=== PATIENT | female | born 1975 | race Caucasian/White ===

== ENCOUNTER → 2017-01-17 | Outpatient (CLI) | payer MEDICAID ==
--- NOTE | 2017-01-17 16:22 | RADIOLOGY REPORT (SQ) ---
EXAM DESCRIPTION: NOSE/NASAL BONES COMPLETED DATE/TIME: 01/17/2017 4:13 pm REASON FOR STUDY: HEADACHE R51 HEADACHE COMPARISON: None. NUMBER OF VIEWS: Three view. TECHNIQUE: Images of the nasal acquired. LIMITATIONS: None. FINDINGS: ORBITS: No fracture. No foreign body. SINUSES: No mucosal thickening. No air fluid levels. NASAL BONES: No fracture. OTHER: No other significant finding. IMPRESSION: NO FOREIGN BODY OR FRACTURE OF THE NASAL BONES. TECHNICAL DOCUMENTATION: JOB ID: [id number] [employer]- All Rights Reserved
== END ==
LOC: OD 15:51
PROVIDERS: ATTEND Physician Assistant
DX: R51 Headache (principal)
CPT/HCPCS: 70160

== ENCOUNTER 2017-09-05 23:43 | Emergency (ER) | payer SELFPAY ==
[2017-09-06] MEDS ORDERED: MORPHINE SULFATE 10 MG/ML INJ IV ONE (00:26)
[2017-09-06] MEDS ORDERED: NORMAL SALINE 1000 ML 1,000 ML IV ONE ×2 (00:26→02:53)
[2017-09-06] MEDS ORDERED: ONDANSETRON HCL INJ/PF 4 MG/2 ML SDV IV ONE (00:26)
--- NOTE | 2017-09-06 00:29 | ER Document Report ---
ED Medical Screen (RME) - General Chief Complaint: Abdominal Pain Stated Complaint: STOMACH PAIN Time Seen by Provider: 09/06/17 00:26 Mode of Arrival: Wheelchair Information source: Patient Notes: 42-year-old female presents to ED for complaint of right lower quadrant abdominal pain with rebound tenderness. Patient states she has been nauseated since about 6 PM. She states at 8:00 she ate and then the nausea became worse and she vomited once. She states she has had one diarrheal stool. She states all the pain is in the right lower quadrant. She does have rebound tenderness. She also has severe pain to the right lower quadrant if her heel is tapped. She states she has had a hysterectomy. I have greeted and performed a rapid initial assessment of this patient. A comprehensive ED assessment and evaluation of the patient, analysis of test results and completion of medical decision making process will be conducted by an additional ED providers. TRAVEL OUTSIDE OF THE [place] IN LAST 30 DAYS: No - Related Data Allergies/Adverse Reactions: No Known Allergies Allergy (Verified 09/05/17 23:50) Past Medical History - Past Medical History Cardiac Medical History: Reports: Hx Coronary Artery Disease Past Surgical History: Reports: Hx Cardiac Catheterization, Hx Gynecologic Surgery - implants in fallopian tubes, Hx Hysterectomy - Immunizations Immunizations up to date: Yes Hx Diphtheria, Pertussis, Tetanus Vaccination: Yes Physical Exam - Vital signs Vitals: Temp Pulse Resp BP Pulse Ox 97.6 F 78 22 H 148/133 H 97 09/05/17 23:52 09/05/17 23:52 09/05/17 23:52 09/05/17 23:52 09/05/17 23:52 Course - Vital Signs Vital signs: Temp Pulse Resp BP Pulse Ox 97.6 F 78 22 H 148/133 H 97 09/05/17 23:52 09/05/17 23:52 09/05/17 23:52 09/05/17 23:52 09/05/17 23:52 Doctor's Discharge - Discharge Referrals: DEWAYNE DRUMMOND PA-C [Primary Care Provider] - Follow up as needed
--- NOTE | 2017-09-06 00:51 | ER Document Report ---
ED General - General Chief Complaint: Abdominal Pain Stated Complaint: STOMACH PAIN Time Seen by Provider: 09/06/17 00:26 Mode of Arrival: Wheelchair Information source: Patient Notes: 42-year-old female with coronary artery disease presents with complaint of right lower quadrant pain that started 6 hours prior to arrival. Patient describes the pain as sudden in onset, sharp, throbbing and constant. Patient has had associated nausea and one episode of vomiting. She states she also had one episode of diarrhea. Patient denies sick contacts. She does have a history of a hysterectomy. She does also have a history of ovarian cysts but states this feels different. Patient denies vaginal discharge, concern for STD. She is sexually active with one partner. TRAVEL OUTSIDE OF THE [place] IN LAST 30 DAYS: No - HPI Onset: Just prior to arrival Onset/Duration: Sudden, Persistent, Worse Quality of pain: Stabbing, Throbbing Severity: Moderate Pain Level: 2 Associated symptoms: Diarrhea, Nausea, Vomiting Exacerbated by: Movement Relieved by: Denies Similar symptoms previously: No Recently seen / treated by doctor: No - Related Data Allergies/Adverse Reactions: No Known Allergies Allergy (Verified 09/05/17 23:50) Past Medical History - General Information source: Patient - Social History Smoking Status: Current Every Day Smoker Cigarette use (# per day): Yes - 10 Smoking Education Provided: Yes Frequency of alcohol use: Occasional Drug Abuse: None Lives with: Family Family History: Arthritis, CAD, CVA, DM, Hyperlipidemia, Hypertension, Malignancy - Past Medical History Cardiac Medical History: Reports: Hx Coronary Artery Disease Past Surgical History: Reports: Hx Cardiac Catheterization, Hx Gynecologic Surgery - implants in fallopian tubes, Hx Hysterectomy - Immunizations Immunizations up to date: Yes Hx Diphtheria, Pertussis, Tetanus Vaccination: Yes Review of Systems - Review of Systems Notes: REVIEW OF SYSTEMS: CONSTITUTIONAL : Denies fever, chills, or sweats. Denies recent illness. Denies weight loss, recent hospitalizations. EENT: Denies visual changes, eye pain. Denies nasal or sinus congestion or discharge. Denies sore throat, oral lesions, difficulty swallowing. CARDIOVASCULAR: Denies chest pain. Denies palpitations. Denies lower extremity edema. RESPIRATORY: Denies cough, cold, or chest congestion. Denies shortness of breath, wheezing. GASTROINTESTINAL: Denies abdominal distention. Denies blood in vomitus, stools, or per rectum. Denies black, tarry stools. Denies constipation. GENITOURINARY: Denies difficulty urinating, painful urination, frequency, blood in urine, or vaginal discharge. MUSCULOSKELETAL: Denies back or neck pain or stiffness. Denies joint pain or swelling. SKIN: Denies rash, lesions or sores. HEMATOLOGIC : Denies easy bruising or bleeding. LYMPHATIC: Denies swollen glands. NEUROLOGICAL: Denies confusion or altered mental status. Denies passing out or loss of consciousness. Denies dizziness or lightheadedness. Denies headache. Denies weakness or paralysis. Denies problems difficulty with ambulation, slurred speech. Denies sensory loss, numbness, or tingling. Denies seizures. PSYCHIATRIC: Denies anxiety or stress. Denies depression, suicidal ideation, or homicidal ideation. Denies visual or auditory hallucinations. Physical Exam - Vital signs Vitals: Temp Pulse Resp BP Pulse Ox 97.6 F 78 22 H 148/133 H 97 09/05/17 23:52 09/05/17 23:52 09/05/17 23:52 09/05/17 23:52 09/05/17 23:52 Interpretation: Hypertensive. No: Febrile - Notes Notes: PHYSICAL EXAMINATION: GENERAL: Well-appearing, well-nourished and in no acute distress. HEAD: Atraumatic, normocephalic. EYES: Pupils equal round and reactive to light, extraocular movements intact, conjunctiva are normal. ENT: Nares patent, oropharynx clear without exudates. Moist mucous membranes. NECK: Normal range of motion, supple without lymphadenopathy LUNGS: Breath sounds clear to auscultation bilaterally and equal. No wheezes rales or rhonchi. HEART: Regular rate and rhythm without murmurs ABDOMEN: Tender to palpation in the right lower quadrant with associated guarding and rebound. Female : deferred Musculoskeletal: Normal range of motion, no pitting or edema. No cyanosis. NEUROLOGICAL: Cranial nerves grossly intact. Normal speech, normal gait. Normal sensory, motor exams PSYCH: Normal mood, normal affect. SKIN: Warm, Dry, normal turgor, no rashes or lesions noted. Course - Re-evaluation Re-evalutation: Laboratory 09/06/17 09/06/17 09/06/17 00:42 00:42 00:42 WBC 9.0 RBC 4.49 Hgb 13.7 Hct 40.5 MCV 90 MCH 30.6 MCHC 33.9 RDW 14.1 H Plt Count 200 Seg Neutrophils % 68.7 Lymphocytes % 22.6 Monocytes % 7.5 Eosinophils % 0.9 Basophils % 0.3 Absolute Neutrophils 6.2 Absolute Lymphocytes 2.0 Absolute Monocytes 0.7 Absolute Eosinophils 0.1 Absolute Basophils 0.0 Sodium 145.3 H Potassium 4.4 Chloride 111 H Carbon Dioxide 23 Anion Gap 11 BUN 11 Creatinine 0.67 Est GFR ( Amer) > 60 Est GFR (Non-Af Amer) > 60 Glucose 90 Calcium 9.6 Total Bilirubin 0.4 Direct Bilirubin 0.3 Neonat Total Bilirubin Not Reportable Neonat Direct Bilirubin Not Reportable Neonat Indirect Bili Not Reportable AST 26 ALT 25 Alkaline Phosphatase 58 Total Protein 6.6 Albumin 4.1 Serum HCG, Qual NEGATIVE Urine Color Urine Appearance Urine pH Ur Specific [place] Urine Protein Urine Glucose (UA) Urine Ketones Urine Blood Urine Nitrite Urine Bilirubin Urine Urobilinogen Ur Leukocyte Esterase Squamous Epi Cells Auto Amorphous Sediment Auto Urine Mucus (Auto) Urine Yeast (Budding) Urine Ascorbic Acid 09/06/17 02:45 WBC RBC Hgb Hct MCV MCH MCHC RDW Plt Count Seg Neutrophils % Lymphocytes % Monocytes % Eosinophils % Basophils % Absolute Neutrophils Absolute Lymphocytes Absolute Monocytes Absolute Eosinophils Absolute Basophils Sodium Potassium Chloride Carbon Dioxide Anion Gap BUN Creatinine Est GFR ( Amer) Est GFR (Non-Af Amer) Glucose Calcium Total Bilirubin Direct Bilirubin Neonat Total Bilirubin Neonat Direct Bilirubin Neonat Indirect Bili AST ALT Alkaline Phosphatase Total Protein Albumin Serum HCG, Qual Urine Color YELLOW Urine Appearance TURBID Urine pH 7.0 Ur Specific [place] 1.020 Urine Protein NEGATIVE Urine Glucose (UA) NEGATIVE Urine Ketones TRACE H Urine Blood SMALL H Urine Nitrite NEGATIVE Urine Bilirubin NEGATIVE Urine Urobilinogen NEGATIVE Ur Leukocyte Esterase NEGATIVE Squamous Epi Cells Auto 4 Amorphous Sediment Auto TRACE Urine Mucus (Auto) RARE Urine Yeast (Budding) PRESENT Urine Ascorbic Acid NEGATIVE Abdomen/Pelvis CT 09/06/17 00:00 IMPRESSION: 1. No acute inflammatory or obstructive process identified. 2. Nonobstructing right nephrolithiasis. This exam was performed according to our departmental dose-optimization program, which includes automated exposure control, adjustment of the mA and/or kV according to patient size and/or use of iterative reconstruction technique. Transvaginal US 09/06/17 03:00 IMPRESSION: 1. No acute sonographic abnormality in the pelvis. Left ovary is not identified. 2. Prior hysterectomy. 2010 [employer]- All Rights Reserved 42-year-old female presents with complaint of abrupt onset of right lower quadrant pain that started just prior to arrival. Upon arrival patient is in moderate distress, unable to find a position of comfort and is crying. Exam is significant for right lower quadrant abdominal pain as well as guarding and rebound. The abdomen and pelvis was obtained to assess for appendicitis and showed a normal appendix. Transvaginal ultrasound was obtained to assess for ovarian torsion and showed no evidence of this. Patient's CAT scan did show a right sided nephrolithiasis but no urolithiasis. 09/06/17 04:40 Patient received 1.5 mg of Dilaudid, 5 mg of morphine, Zofran. On reevaluation she is resting comfortably. Patient's laboratory testing is essentially unremarkable. Urinalysis does show hematuria. She is able to tolerate fluids. I did discuss again with the patient if she was concerned for sexually transmitted disease or had any vaginal discharge and again she states no. She has had a annual exam this year. She is declining pelvic exam at this time. It is possible that the patient recently passed a stone. Patient provided the opportunity to ask questions, and express concerns. Discharge instructions discussed. Patient is agreeable with discharge home. Return indications explained and discussed with the patient who displays understanding. Patient encouraged to return to the emergency department immediately with any concerns. 09/06/17 13:12 09/06/17 13:17 - Vital Signs Vital signs: Temp Pulse Resp BP Pulse Ox 97.7 F 78 18 108/64 95 09/06/17 05:01 09/05/17 23:52 09/06/17 05:01 09/06/17 05:01 09/06/17 05:01 - Laboratory Result Diagrams: 09/06/17 00:42 09/06/17 00:42 Laboratory results interpreted by me: 09/06/17 09/06/17 09/06/17 00:42 00:42 02:45 RDW 14.1 H Sodium 145.3 H Chloride 111 H Urine Ketones TRACE H Urine Blood SMALL H - Diagnostic Test Radiology reviewed: Image reviewed, Reports reviewed Discharge - Discharge Clinical Impression: Right lower quadrant abdominal pain, Nephrolithiasis Hematuria Qualifiers: Hematuria type: unspecified type Qualified Code(s): R31.9 - Hematuria, unspecified Nausea & vomiting Qualifiers: Vomiting type: unspecified Vomiting Intractability: non-intractable Qualified Code(s): R11.2 - Nausea with vomiting, unspecified Condition: Good Disposition: HOME, SELF-CARE Instructions: Abdominal Pain ([facility]), Observation for Appendicitis ([facility]), Pain Medication Injection ([facility]) Additional Instructions: Please return immediately to the emergency room you experience a recurrence of your abdominal pain. Your imaging today did not show evidence of appendicitis, ovarian cyst or twisting of your ovary. It did show that you have a stone in your kidney which should not cause pain. Your pain is possibly due to a recently passed stone. Prescriptions: Ondansetron [Zofran Odt 4 mg Tablet] 1 - 2 tab PO Q4H PRN #15 tab.rapdis PRN Reason: For Nausea/Vomiting Referrals: DEWAYNE DRUMMOND PA-C [Primary Care Provider] - Follow up in 3-5 days
[2017-09-06] MEDS ORDERED: HYDROMORPHONE HCL INJ/PF 2 MG/ML AMPULE IV ONE ×2 (01:03→02:42)
[2017-09-06 01:27] LABS: ABSOLUTE EOSINOPHILS # (AUTO) 0.1 10^3/uL (0.0-0.6); ABSOLUTE MONOCYTES (AUTO) 0.7 10^3/uL (0.1-1.4); ABSOLUTE NEUT (AUTO) 6.2 10^3/uL (1.7-8.2); BASOPHILS % (AUTO) 0.3 % (0-2); EOSINOPHILS % (AUTO) 0.9 % (0-6); HEMATOCRIT 40.5 % (36.0-47.0); HEMOGLOBIN 13.7 g/dL (12.0-15.5); LYMPHOCYTES % (AUTO) 22.6 % (13-45); MEAN CORPUSCULAR HEMOGLOBIN 30.6 pg (27.0-33.4); MEAN CORPUSCULAR HGB CONC 33.9 g/dL (32.0-36.0); MEAN CORPUSCULAR VOLUME 90 fl (80-97); MONOCYTES % (AUTO) 7.5 % (3-13); PLATELET COUNT 200 10^3/uL (150-450); RED BLOOD COUNT 4.49 10^6/uL (3.72-5.28); RED CELL DISTRIBUTION WIDTH 14.1 % (11.5-14.0); SEGMENTED NEUTROPHILS % (AUTO) 68.7 % (42-78); TOTAL CELLS COUNTED % (AUTO) 100 %
[2017-09-06 01:50] LABS: ALANINE AMINOTRANSFERASE 25 U/L (9-52); ALBUMIN 4.1 g/dL (3.5-5.0); ALKALINE PHOSPHATASE 58 U/L (38-126); ANION GAP 11 (5-19); ASPARTATE AMINO TRANSFERASE 26 U/L (14-36); BILIRUBIN,DIRECT 0.3 mg/dL (0.0-0.4); BILIRUBIN,TOTAL 0.4 mg/dL (0.2-1.3); BLOOD UREA NITROGEN 11 mg/dL (7-20); CALCIUM 9.6 mg/dL (8.4-10.2); CARBON DIOXIDE 23 mmol/L (22-30); CHLORIDE 111 mmol/L (98-107); GLUCOSE 90 mg/dL (75-110); POTASSIUM 4.4 mmol/L (3.6-5.0); SODIUM 145.3 mmol/L (137-145); TOTAL PROTEIN 6.6 g/dL (6.3-8.2)
--- NOTE | 2017-09-06 02:43 | RADIOLOGY REPORT (SQ) ---
EXAM DESCRIPTION: CT ABDOMEN PELVIS WITH IV CONTRAST COMPLETED DATE/TME: 09/06/2017 00:00 CLINICAL HISTORY: Right lower quadrant abdominal pain NVD COMPARISON: 12/15/2014 TECHNIQUE: CT of the abdomen and pelvis performed following IV administration of 71 mL of Isovue-370. DLP: 745 mGycm FINDINGS: Lung Bases: The visualized lung bases are clear. Bones: No destructive bone lesions identified. Minimal degenerative change of the spine. Abdomen: Liver: The liver has normal size and density. No intrahepatic mass or biliary dilatation. Gallbladder: No calcified gallstones. Spleen, Pancreas, and Adrenal Glands: The spleen, pancreas, and adrenal glands are unremarkable. Kidneys: The kidneys have normal size and contour without evidence of solid mass or hydronephrosis. Nonobstructing right nephrolithiasis. Vasculature: Aortoiliac atherosclerosis. IVC is unremarkable. The portal vein is patent. The proximal visceral and renal arteries are patent. Stomach: The stomach and duodenum have normal course. Other: No free intraperitoneal air. No free fluid or lymphadenopathy. Pelvis: Bladder: Urinary bladder is unremarkable. Bowel: No dilated loops of large or small bowel. Appendix: Normal appendix. Pelvis: Cystic structure in the left vaginal wall possibly representing a Renee's duct cyst is unchanged. Prior hysterectomy. IMPRESSION: 1. No acute inflammatory or obstructive process identified. 2. Nonobstructing right nephrolithiasis. This exam was performed according to our departmental dose-optimization program, which includes automated exposure control, adjustment of the mA and/or kV according to patient size and/or use of iterative reconstruction technique.
[2017-09-06] MEDS ORDERED: TAMSULOSIN HCL 0.4 MG CAP.SR.24H PO ONE (02:53)
[2017-09-06] MEDS ORDERED: KETOROLAC TROMETHAMINE INJ/PF 30 MG/1 ML SDV IV ONE (02:53)
[2017-09-06 03:29] LABS: AMORPHOUS SEDIMENT,URINE TRACE /HPF; APPEARANCE,URINE TURBID; BILIRUBIN,URINE NEGATIVE (NEGATIVE); COLOR,URINE YELLOW; GLUCOSE, URINE NEGATIVE (NEGATIVE); KETONES,URINE TRACE mg/dL (NEGATIVE); LEUKOCYTE ESTERASE,URINE NEGATIVE (NEGATIVE); NITRITE,URINE NEGATIVE (NEGATIVE); PROTEIN,URINE NEGATIVE (NEGATIVE); UROBILINOGEN,URINE NEGATIVE mg/dL (<2.0)
--- NOTE | 2017-09-06 04:07 | RADIOLOGY REPORT (SQ) ---
EXAM DESCRIPTION: US PELVIS COMPLETED DATE/TME: 09/06/2017 03:00 CLINICAL HISTORY: 42 years, Female, rlq pain COMPARISON: None. TECHNIQUE: Complete pelvic ultrasound with transvaginal imaging. FINDINGS: Prior hysterectomy. No abnormalities of the cervix or vaginal cuff. 2.0 cm cystic structure at the leftward aspect of the ovary likely represents a Renee's duct cyst. Left ovary not identified. The ovary measures 3.2 x 2.3 x 2.3 cm. Limited color spectral Doppler imaging to be trace flow within the right ovary. IMPRESSION: 1. No acute sonographic abnormality in the pelvis. Left ovary is not identified. 2. Prior hysterectomy. 2010 [employer]- All Rights Reserved
[2017-09-06 05:07] VITALS: BP 108/64
== END 2017-09-06 05:20 | disposition home or self-care (01) ==
LOC: ER 23:43
DX: N20.0 Calculus of kidney (principal); R10.31 Right lower quadrant pain; R11.2 Nausea with vomiting, unspecified; R31.9 Hematuria, unspecified; R19.7 Diarrhea, unspecified; F17.210 Nicotine dependence, cigarettes, uncomplicated; Z90.710 Acquired absence of both cervix and uterus
CPT/HCPCS: 99284; 36415; 84703; 85025; 80053; 81001; 76830; 93976; 74177; J1885; J2270; J1170; J2405; J7030

== ENCOUNTER 2017-11-23 15:21 | Emergency (ER) | payer SELFPAY ==
[2017-11-23] MEDS ORDERED: LIDOCAINE 1% INJ-PF (10 MG/ML) 30 ML SDV INJ ONE (16:39)
[2017-11-23] MEDS ORDERED: CEFTRIAXONE INJ 250 MG VIAL IM ONE (16:39)
[2017-11-23] MEDS ORDERED: METRONIDAZOLE 500 MG TABLET PO ONE (16:39)
[2017-11-23] MEDS ORDERED: AZITHROMYCIN 250 MG TABLET PO ONE (16:39)
[2017-11-23] MEDS ORDERED: PROMETHAZINE HCL 25 MG TABLET PO ONE (16:41)
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
[2017-11-23 17:35] LABS: EPITHELIALS (WET MOUNT) 3+ EPITHELIALS SEEN; RBCS (WET MOUNT) NO RBCS SEEN; T.VAGINALIS (WET MOUNT) NO TRICHOMONAS SEEN; WBCS (WET MOUNT) RARE WBCS SEEN; YEAST (WET MOUNT) NO YEAST SEEN
[2017-11-23 18:16] VITALS: BP 124/76
[2017-11-23 18:58] LABS: CHLAM PCR NOT DETECTED (NOT DETECT); GON PCR NOT DETECTED (NOT DETECT)
[2017-11-26 04:37] LABS: HEPATITIS A AB IGM Negative (Negative); HEPATITIS B CORE AB IGM Negative (Negative); HEPATITS B SURFACE ANTIGEN Negative (Negative)
[2017-11-26 07:28] LABS: HEPATITIS C VIRUS ANTIBODY <0.1 s/co ratio (0.0-0.9)
== END 2017-11-23 18:16 | disposition home or self-care (01) ==
LOC: ER 15:21
DX: Z20.2 Contact with and (suspected) exposure to infections with a predominantly sexual mode of transmission (principal); N89.9 Noninflammatory disorder of vagina, unspecified; F17.200 Nicotine dependence, unspecified, uncomplicated
CPT/HCPCS: 99284; 36415; 87210; 86592; 86701; 87491; 87591; 80074; J3490; J0696

== ENCOUNTER 2019-03-18 17:29 | Emergency (ER) | payer SELFPAY ==
[2019-03-18 19:12] VITALS: BP 117/72
[2019-03-18] MEDS ORDERED: KETOROLAC TROMETHAMINE INJ/PF 30 MG/1 ML SDV IV ONE (19:40)
[2019-03-18] MEDS ORDERED: METOCLOPRAMIDE HCL INJ/PF 10 MG/2 ML SDV IV ONE (19:40)
[2019-03-18] MEDS ORDERED: DEXAMETHASONE SOD PHOS INJ 10 MG/1 ML VIAL IV ONE (19:40)
[2019-03-18] MEDS ORDERED: DIPHENHYDRAMINE HCL 50 MG/ML VIAL IV ONE (19:40)
--- NOTE | 2019-03-18 19:42 | ER Document Report ---
ED Medical Screen (RME) - General Chief Complaint: Headache Stated Complaint: HEAD PAIN Time Seen by Provider: 03/18/19 19:35 Primary Care Provider: DEWAYNE DRUMMOND PA-C [Primary Care Provider] - Follow up as needed Notes: HPI: 44-year-old female presenting to the emergency department complaining of a sharp stabbing right temporal headache over the last 3 days. Some underlying level of discomfort with intermittent episodes of increasing intensity. No visual change or loss. No rash. Patient states the headache seems to come over the right ear into the right forehead cheek and jaw. No chest pain or shortness of breath. Denies neck pain. Has taken no medications for the headache that have helped. Subjective flulike symptoms over the last 2 to 3 days I have greeted and performed a rapid initial assessment of this patient. A comprehensive ED assessment and evaluation of the patient, analysis of test results and completion of the medical decision making process will be conducted by additional ED providers PHYSICAL EXAMINATION: GENERAL: Well-appearing, well-nourished and in no acute distress. HEAD: Atraumatic, normocephalic. EYES: sclera anicteric, conjunctiva are normal. No photophobia. No visible rash around the eyes ENT: Moist mucous membranes. NECK: Normal range of motion LUNGS: Normal work of breathing, lung sounds are clear to auscultation HEART: 2+ radial pulses bilaterally, regular rate and rhythm ABD: limited by positioning for exam in triage. EXTREMITIES: no pitting or edema. No cyanosis. NEUROLOGICAL: No focal neurological deficits. Moves all extremities spontaneously and on command. Gait is normal. Strength equal 5/5 bilateral upper and lower extremities with intact sensation PSYCH: Normal mood, normal affect. SKIN: Warm, Dry, normal turgor, no rashes or lesions noted. TRAVEL OUTSIDE OF THE [place] IN LAST 30 DAYS: No - Related Data Allergies/Adverse Reactions: No Known Allergies Allergy (Verified 03/18/19 19:27) Past Medical History - Past Medical History Cardiac Medical History: Reports: Hx Coronary Artery Disease Renal/ Medical History: Denies: Hx Peritoneal Dialysis Musculoskeltal Medical History: Reports Hx Arthritis - Chronic back pain Past Surgical History: Reports: Hx Cardiac Catheterization, Hx Gynecologic Surgery - implants in fallopian tubes, Hx Hysterectomy - Immunizations Immunizations up to date: Yes Hx Diphtheria, Pertussis, Tetanus Vaccination: Yes Physical Exam - Vital signs Vitals: Temp Pulse Resp BP Pulse Ox 98.3 F 81 16 117/72 97 03/18/19 19:10 03/18/19 19:10 03/18/19 19:10 03/18/19 19:10 03/18/19 19:10 Course - Vital Signs Vital signs: Temp Pulse Resp BP Pulse Ox 98.3 F 81 16 117/72 97 03/18/19 19:10 03/18/19 19:10 03/18/19 19:10 03/18/19 19:10 03/18/19 19:10 Doctor's Discharge - Discharge Referrals: DEWAYNE DRUMMOND PA-C [Primary Care Provider] - Follow up as needed
[2019-03-18 20:18] LABS: ABSOLUTE EOSINOPHILS # (AUTO) 0.1 10^3/uL (0.0-0.6); ABSOLUTE LYMPHOCYTES (AUTO) 2.4 10^3/uL (0.5-4.7); ABSOLUTE MONOCYTES (AUTO) 0.5 10^3/uL (0.1-1.4); ABSOLUTE NEUT (AUTO) 4.4 10^3/uL (1.7-8.2); BASOPHILS % (AUTO) 0.3 % (0-2); EOSINOPHILS % (AUTO) 1.2 % (0-6); HEMATOCRIT 42.9 % (36.0-47.0); HEMOGLOBIN 15.1 g/dL (12.0-15.5); LYMPHOCYTES % (AUTO) 32.1 % (13-45); MEAN CORPUSCULAR HEMOGLOBIN 32.4 pg (27.0-33.4); MEAN CORPUSCULAR HGB CONC 35.1 g/dL (32.0-36.0); MEAN CORPUSCULAR VOLUME 92 fl (80-97); MONOCYTES % (AUTO) 7.2 % (3-13); PLATELET COUNT 203 10^3/uL (150-450); RED BLOOD COUNT 4.65 10^6/uL (3.72-5.28); RED CELL DISTRIBUTION WIDTH 13.3 % (11.5-14.0); SEGMENTED NEUTROPHILS % (AUTO) 59.2 % (42-78); TOTAL CELLS COUNTED % (AUTO) 100 %; WHITE BLOOD COUNT 7.5 10^3/uL (4.0-10.5)
[2019-03-18 20:29] LABS: ALBUMIN 4.3 g/dL (3.5-5.0); ALKALINE PHOSPHATASE 60 U/L (38-126); ANION GAP 8 (5-19); ASPARTATE AMINO TRANSFERASE 20 U/L (14-36); BILIRUBIN,TOTAL 0.2 mg/dL (0.2-1.3); BLOOD UREA NITROGEN 16 mg/dL (7-20); CALCIUM 9.2 mg/dL (8.4-10.2); CARBON DIOXIDE 24 mmol/L (22-30); CHLORIDE 106 mmol/L (98-107); GLUCOSE 74 mg/dL (75-110); POTASSIUM 4.2 mmol/L (3.6-5.0); TOTAL PROTEIN 7.1 g/dL (6.3-8.2)
--- NOTE | 2019-03-18 20:37 | RADIOLOGY REPORT (SQ) ---
EXAM DESCRIPTION: CT HEAD WITHOUT IV CONTRAST COMPLETED DATE/TME: 03/18/2019 19:40 CLINICAL HISTORY: 44 years, Female, headache EXAM DESCRIPTION: CLINICAL HISTORY: headache COMPARISON: None Available TECHNIQUE: Contiguous axial CT images of the head were obtained. Coronal and sagittal reconstructions were created from the axial data. This exam was performed according to our departmental dose-optimization program, which includes automated exposure control, adjustment of the mA and/or kV according to patient size and/or use of iterative reconstruction technique. FINDINGS: There is no evidence of acute mass, mass effect, midline shift or hemorrhage. The ventricles and extra-axial CSF spaces are unremarkable. The brain parenchyma appears normal for the patient's age. No acute abnormalities of the bones is seen. IMPRESSION: No acute intracranial abnormality.
[2019-03-18 20:58] LABS: ERYTHROCYTE SEDIMENTATION RATE 12 mm/hr (0-20)
== END 2019-03-19 00:42 | disposition left against medical advice (07) ==
LOC: ER 17:29
DX: Z53.21 Procedure and treatment not carried out due to patient leaving prior to being seen by health care provider (principal); R51 Headache; H92.01 Otalgia, right ear; R68.84 Jaw pain; I25.10 Atherosclerotic heart disease of native coronary artery without angina pectoris
CPT/HCPCS: 36415; 70450; 80053; 85025; 85652

== ENCOUNTER 2019-03-19 10:35 | Emergency (ER) | payer SELFPAY ==
[2019-03-19 10:45] VITALS: BP 113/72
--- NOTE | 2019-03-19 11:44 | ER Document Report ---
HPI - HPI Time Seen by Provider: 03/19/19 11:35 Context: CHIEF COMPLAINT: Right facial headache HPI: 44-year-old female presenting again to the emergency department with right facial headache. I saw this patient last night she ended up leaving secondary to the wait time but states she had her CT and lab work done. Did not receive the medications that were ordered for her previously. Patient complained of pain and headache that was intermittent in nature coming over the right ear into the right forehead cheek and jawline. No fevers ROS: See HPI - all other systems were reviewed and are otherwise negative Constitutional: no fever Eyes: no drainage, no blurred vision ENT: no runny nose, no sore throat Cardiovascular: no chest pain Resp: no SOB, no cough GI: no vomiting, no diarrhea, no abdominal pain : no dysuria Integumentary: no rash Allergy: no hives Musculoskeletal: no extremity pain or swelling Neurological: Positive headache, no weakness MEDICATIONS: I agree with the patient medications as charted by the RN. ALLERGIES: I agree with the allergies as charted by the RN. PAST MEDICAL HISTORY/PAST SURGICAL HISTORY: Reviewed and agree as charted by RN. SOCIAL HISTORY: Reviewed and agree as charted by RN. FAMILY HISTORY: No significant familial comorbid conditions directly related to patient complaint EXAM: Reviewed vital signs as charted by RN. CONSTITUTIONAL: Alert and oriented and responds appropriately to questions. Well-appearing; well-nourished, no acute distress HEAD: Normocephalic; atraumatic EYES: PERRL; Conjunctivae clear, sclerae non-icteric. No photophobia ENT: normal nose; no rhinorrhea; moist mucous membranes; pharynx without lesions noted, no uvula edema or deviation, no tonsillar hypertrophy, phonation normal. No facial rash NECK: Supple without meningismus; non-tender; no cervical lymphadenopathy, no masses CARD: RRR; no murmurs, no clicks, no rubs, no gallops; symmetric distal pulses RESP: Normal chest excursion without splinting or tachypnea ABD/GI: non-distended BACK: The back appears normal EXT: Normal ROM in all joints; no cyanosis, no effusions, no edema SKIN: Normal color for age and race; warm; dry; good turgor; no acute lesions noted NEURO: Moves all extremities equally; Motor and sensory function intact. No facial droop. Speech is normal. No sensory change in the right face relative to the left PSYCH: The patient's mood and manner are appropriate. Grooming and personal hygiene are appropriate. MDM: 44-year-old female with right facial headache. There may be some component of trigeminal neuralgia. Patient is neurologically intact at this time. I reviewed her results from yesterday normal head CT normal lab work including normal sed rate. Will place patient on a course of gabapentin, Decadron, follow-up in neurology - REPRODUCTIVE Reproductive: DENIES: : Past Medical History - Social History Smoking Status: Unknown if Ever Smoked Family History: Arthritis, CAD, CVA, DM, Hyperlipidemia, Hypertension, Malignancy - Past Medical History Cardiac Medical History: Reports: Hx Coronary Artery Disease Renal/ Medical History: Denies: Hx Peritoneal Dialysis Musculoskeletal Medical History: Reports Hx Arthritis - Chronic back pain Past Surgical History: Reports: Hx Cardiac Catheterization, Hx Gynecologic Surgery - implants in fallopian tubes, Hx Hysterectomy - Immunizations Immunizations up to date: Yes Hx Diphtheria, Pertussis, Tetanus Vaccination: Yes Vertical Provider Document - INFECTION CONTROL TRAVEL OUTSIDE OF THE [place] IN LAST 30 DAYS: No Course - Vital Signs Vital signs: Temp Pulse Resp BP Pulse Ox 98.6 F 81 14 113/72 95 03/19/19 10:43 03/19/19 10:43 03/19/19 10:43 03/19/19 10:43 03/19/19 10:43 Discharge - Discharge Clinical Impression: Right facial pain Condition: Stable Disposition: HOME, SELF-CARE Additional Instructions: Medications as prescribed, follow-up closely with neurology for further evaluation and treatment. Lab work and CT imaging that were performed yesterday did not show any acute findings as discussed Prescriptions: Dexamethasone [Decadron 4 Mg Tablet] 4 mg PO BID 5 Days tablet Gabapentin [Neurontin 300 mg Capsule] 100 mg PO TID 10 Days #30 cap Referrals: DEWAYNE DRUMMOND PA-C [Primary Care Provider] - Follow up as needed
== END 2019-03-19 11:50 | disposition home or self-care (01) ==
LOC: ER 10:35
DX: R51 Headache (principal); I25.10 Atherosclerotic heart disease of native coronary artery without angina pectoris; Z90.710 Acquired absence of both cervix and uterus